=== PATIENT | female | born 1970 | race Two or more races ===

== ENCOUNTER 2024-10-13 05:53 | Day surgery (SDC) | payer OTHER ==
[2024-10-11 09:39] LABS: PH,URINE 5.5 (5.0-8.0); URINE APPEARANCE Clear; URINE BILIRRUBIN Negative (NEGATIVE); URINE BLOOD Negative; URINE COLOR Yellow; URINE GLUCOSE Negative (NEGATIVE); URINE KETONE 15 (NEGATIVE); URINE LEUKOCYTE Small; URINE NITRATE Negative; URINE PROTEIN Negative (NEGATIVE); URINE UROBILINOGEN 0.2 E.U./dl
[2024-10-11 09:40] LABS: URINE BACTERIA 91.7 uL (0.0-1933); URINE EPITHELIAL CELLS 8.5 uL (0.0-38.8); URINE RBC 2.2 uL (0.0-20.8); URINE WBC 21.9 uL (0.0-23.2)
[2024-10-11 09:42] LABS: BASO % 0.5 % (0.1-1.2); EOS # 0.06 (0.04-0.54); HEMATOCRIT 39.5 % (34.1-44.9); HEMOGLOBIN 12.7 g/dL (11.2-15.7); LYMPH # 1.12 (1.18-3.74); LYMPH % 19.5 % (19.3-53.1); MEAN CORPUSCULAR HEMOGLOBIN 28.3 pg (25.6-32.2); MONO # 0.45 (0.24-0.82); MONO % 7.9 % (4.7-12.5); NEUT # 4.06 (1.56-6.13); NEUT % 70.9 % (34.0-71.1); PLATELET COUNT 282 K/uL (163-369); RED BLOOD COUNT 4.49 M/uL (3.93-5.22); RED CELL DISTRIBUTION WIDTH 12.3 % (11.6-14.4)
[2024-10-11 10:02] LABS: INR 1.17; PARTIAL THROMBOPLASTIN TIME 28.6 SECONDS (22.0-34.0); PROTHROMBIN TIME 12.6 SECONDS (9.0-11.5)
[2024-10-11 10:25] LABS: COVID-19 AG NEGATIVE (NEGATIVE)
[2024-10-11 11:14] VITALS: BP 121/79
[2024-10-11 12:51] LABS: ALBUMIN 4.4 gm/dL (3.4-5.0); BILIRUBIN TOTAL 2.3 mg/dL (0.3-1.2); CALCIUM 9.9 mg/dL (8.5-10.1); CREATININE SERUM 0.84 mg/dL (0.55-1.02); GFR 70.92; GLOBULINA 3.6 G/DL (2.4-3.5); POTASSIUM 4.16 mEq/L (3.5-5.1)
[~2024-10-13] VITALS: Ht 167.6 cm; Wt 75.3 kg
[~2024-10-13 05:53] MED LIST: CLONAZEPAM0.5 MG PO; SYNTHROID88 MCG PO
[2024-10-13] MEDS ORDERED: CLINDAMYCIN PHOSPHATE 150 MG/ML (900mg) ONE (10:13)
[2024-10-13] MEDS ORDERED: GENTAMICIN SULFATE 40 MG/ML VIAL ONE (12:39)
[2024-10-13] MEDS ORDERED: POVIDONE-IODINE 118 ML BOTT TOP ONE (12:40)
[2024-10-13] MEDS ORDERED: CEFAZOLIN SODIUM 1,000 MG VIAL ONE (12:40)
[2024-10-13] MEDS ORDERED: BUPIVACAINE HCL/MPF 0.5% 30ML VIAL ONE (12:40)
[2024-10-13] MEDS ORDERED: POVIDONE-IODINE SCRUB 118 ML BOTT TOP ONE (12:40)
[2024-10-13] MEDS ORDERED: NITROGLYCERIN 1 INCH OINT..GM. TD ONE (15:44)
== END 2024-10-13 18:45 | disposition home or self-care (01) ==
LOC: CIR.AMB 05:53
PROVIDERS: ATTEND Surgery
DX: C50.211 Malignant neoplasm of upper-inner quadrant of right female breast (principal); N65.1 Disproportion of reconstructed breast; Z88.5 Allergy status to narcotic agent

== ENCOUNTER 2024-11-14 07:48 | Day surgery (SDC) | payer OTHER ==
[2024-11-06 11:22] LABS: BASO % 0.6 % (0.1-1.2); EOS # 0.04 (0.04-0.54); EOS % 0.8 % (0.7-7.0); LYMPH # 0.96 (1.18-3.74); LYMPH % 18.4 % (19.3-53.1); MEAN PLATELET VOLUME 10.20 fl (9.4-12.4); MONO # 0.42 (0.24-0.82); MONO % 8.1 % (4.7-12.5); NEUT # 3.75 (1.56-6.13); NEUT % 71.9 % (34.0-71.1); RED CELL DISTRIBUTION WIDTH 12.6 % (11.6-14.4)
[2024-11-06 11:27] LABS: URINE APPEARANCE Clear; URINE BILIRRUBIN Negative (NEGATIVE); URINE BLOOD Negative; URINE COLOR Yellow; URINE GLUCOSE Negative (NEGATIVE); URINE KETONE 15 (NEGATIVE); URINE LEUKOCYTE Small; URINE NITRATE Negative; URINE PROTEIN Negative (NEGATIVE); URINE UROBILINOGEN 0.2 E.U./dl
[2024-11-06 11:31] VITALS: BP 116/75
[2024-11-06 11:42] LABS: INR 1.13
[2024-11-06 12:02] LABS: URINE BACTERIA MODERATE; URINE MUCUS SCANT; URINE WBC 0-2 /hpf
[2024-11-06 12:21] LABS: ALT/SGPT 21.0 U/L (12-78); AST/SGOT 11.0 U/L (15-37); BILIRUBIN TOTAL 2.49 mg/dL (0.3-1.2); BUN CREA RATIO 15.0 (7.0-25.0); CREATININE SERUM 0.78 mg/dL (0.55-1.02); GFR 77.26; GLOBULINA 3.6 G/DL (2.4-3.5); GLUCOSE FASTING 92.0 mg/dL (65-100); OSMOLALITY SERUM 283.0 MOSM/KG (275-295)
[~2024-11-14] VITALS: Ht 167.6 cm; Wt 71.2 kg
[2024-11-14] MEDS ORDERED: TRAM1TAB98 PO (12:44)
[2024-11-14] MEDS ORDERED: CEFAZOLIN SODIUM 1,000 MG VIAL IV ONE (13:45)
[2024-11-14] MEDS ORDERED: HEPARIN SODIUM,PORCINE 500 UNITS/5 ML VIAL IV ONE (13:45)
== END 2024-11-14 16:40 | disposition home or self-care (01) ==
LOC: CIR.AMB 07:48
PROVIDERS: ATTEND Surgery
DX: C50.011 Malignant neoplasm of nipple and areola, right female breast (principal)
CPT/HCPCS: 36561; C1751